=== PATIENT | male | born 1960 | race Caucasian/White ===

== ENCOUNTER 2018-04-26 06:43 | Emergency (ER) | payer OTHER ==
[~2018-04-26] VITALS: Ht 182.9 cm; Wt 65.8 kg
[2018-04-26] MEDS ORDERED: XANAX1 MG PO (06:58)
[2018-04-26] MEDS ORDERED: RESTORIL30 MG PO (06:58)
[2018-04-26 07:40] LABS: URINE BILIRUBIN NEGATIVE (Negative); URINE BLOOD NEGATIVE (Negative); URINE CLARITY CLEAR; URINE COLOR YELLOW; URINE GLUCOSE-RANDOM NEGATIVE (Negative); URINE KETONES NEGATIVE (Negative); URINE LEUKOCYTES-REFLEX NEGATIVE (Negative); URINE NITRITE-REFLEX NEGATIVE (Negative); URINE PROTEIN NEGATIVE (Negative); URINE SPECIFIC GRAVITY <= 1.005 (1.005-1.030); URINE UROBILINOGEN 0.2 E.U./dl (0.2-1.0)
[2018-04-26 07:51] LABS: HEMATOCRIT 42.9 % (42.0-52.0); HEMOGLOBIN 14.5 gm/dL (14.0-18.0); MCH 31.5 pg (26.0-34.0); MCHC 33.9 g/dL (28.0-37.0); MCV 92.9 fL (80.0-100.0); MPV 7.7 fl. (7.2-11.1); RBC 4.61 mil/uL (4.50-6.00); RDW-CV 13.1 % (10.5-14.5); WBC 7.2 thou/uL (4.0-11.0)
[2018-04-26 07:53] LABS: AMP/METHAMP Negative (Negative); BARBITURATES Negative (Negative); BENZODIAZEPINES POSITIVE (Negative); COCAINE Negative (Negative); METHADONE Negative (Negative); OPIATES Negative (Negative); PCP Negative (Negative); THC POSITIVE (Negative)
[2018-04-26 08:01] LABS: CALCIUM 8.6 mg/dL (8.5-10.1); POTASSIUM 3.9 mmol/L (3.5-5.1)
[2018-04-26 08:06] LABS: ALBUMIN 4.2 g/dL (3.4-5.0); TOTAL BILIRUBIN 0.5 mg/dL (<0.1-1.0); TOTAL PROTEIN 7.2 g/dL (6.4-8.2)
[2018-04-26] MEDS ORDERED: ACETAMINOPHEN-1 EAC1 PO (08:51)
[2018-04-26] MEDS ORDERED: IBUPROFEN 800800 MG PO (08:51)
[2018-04-26] MEDS ORDERED: CYCLOBENZAPRINE5 MG PO (08:51)
[2018-04-26 09:13] VITALS: BP 124/76
== END 2018-04-26 09:14 | disposition home or self-care (01) ==
LOC: M.ERS 06:43
PROVIDERS: Personal Emergency Response Attendant
DX: S13.4XXA Sprain of ligaments of cervical spine, initial encounter (principal); M19.90 Unspecified osteoarthritis, unspecified site; F41.9 Anxiety disorder, unspecified; V43.52XA Car driver injured in collision with other type car in traffic accident, initial encounter; Y93.89 Activity, other specified; Y92.89 Other specified places as the place of occurrence of the external cause; Y99.8 Other external cause status